=== PATIENT | female | born 1960 | race Caucasian/White ===

== ENCOUNTER → 2023-06-20 | Outpatient (CLI) | payer MEDICARE, BC ==
[~2023-06-20] MED LIST: ASPI81TA26 PO; B-12100010 PO; CRAN400C PO; GASTROGRAFIN SOLUTION 30ML ONE; ISOVUE-370 76% 100ML VIAL ONE; JARD1TAB; LISI10TA22; METF10004; PRESCAP PO; ROPI5TAB19; SIMV20TA22
== END ==
LOC: M PLAIMG 11:19
PROVIDERS: ATTEND Internal Medicine Hematology & Oncology
DX: D46.9 Myelodysplastic syndrome, unspecified (principal); C49.9 Malignant neoplasm of connective and soft tissue, unspecified; Z90.5 Acquired absence of kidney; Z90.49 Acquired absence of other specified parts of digestive tract; N28.1 Cyst of kidney, acquired; K42.9 Umbilical hernia without obstruction or gangrene; R91.8 Other nonspecific abnormal finding of lung field; I25.10 Atherosclerotic heart disease of native coronary artery without angina pectoris; K44.9 Diaphragmatic hernia without obstruction or gangrene
CPT/HCPCS: 71260; 74177; Q9963; Q9967

== ENCOUNTER → 2023-09-19 | Outpatient (CLI) | payer MEDICARE, BC ==
[~2023-09-19] MED LIST changes: -GASTROGRAFIN SOLUTION 30ML ONE; -ISOVUE-370 76% 100ML VIAL ONE; -JARD1TAB; +JARD1TAB PO; -LISI10TA22; +LISI10TA22 PO; -ROPI5TAB19; +ROPI5TAB19 PO; -SIMV20TA22; +SIMV20TA22 PO
== END ==
LOC: M RAD 10:05
PROVIDERS: ATTEND Internal Medicine Medical Oncology
DX: C46 Kaposi's sarcoma (principal)

== ENCOUNTER → 2023-10-22 | Outpatient (CLI) | payer MEDICARE, BC | LOC: M PLARAD 11:02 | PROVIDERS: ATTEND Internal Medicine Medical Oncology | DX: C64.2 Malignant neoplasm of left kidney, except renal pelvis (principal) | CPT/HCPCS: 78815; A9552 ==

== ENCOUNTER → 2023-11-19 | Outpatient (CLI) | payer MEDICARE, BC ==
[~2023-11-19] MED LIST changes: -CRAN400C PO; +CRANBERRY400 MG PO; +HOME MED LIST COMPLETE! XX SCH; +LIDOCAINE 1% MDV 20ML VIAL As Ordered ONE
[2023-11-19 08:08] VITALS: TEMP 98.4
[2023-11-19 11:15] VITALS: BP 120/64; O2SAT 97
== END ==
LOC: M IRPRO 07:58
PROVIDERS: ATTEND Internal Medicine Pulmonary Disease
DX: R91.1 Solitary pulmonary nodule (principal); J95.811 Postprocedural pneumothorax; C78.01 Secondary malignant neoplasm of right lung

== ENCOUNTER → 2023-11-20 | Outpatient (CLI) | payer MEDICARE, BC ==
[~2023-11-20] MED LIST changes: -HOME MED LIST COMPLETE! XX SCH; -LIDOCAINE 1% MDV 20ML VIAL As Ordered ONE
== END ==
LOC: M RAD 11:08
PROVIDERS: ATTEND Internal Medicine Pulmonary Disease
DX: J95.811 Postprocedural pneumothorax (principal)

== ENCOUNTER → 2023-12-10 | Outpatient (CLI) | payer MEDICARE, BC | LOC: M CARPUL 13:01 | PROVIDERS: ATTEND Internal Medicine Medical Oncology | DX: C64.2 Malignant neoplasm of left kidney, except renal pelvis (principal); Z79.69 Long term (current) use of other immunomodulators and immunosuppressants; I36.1 Nonrheumatic tricuspid (valve) insufficiency ==

== ENCOUNTER 2023-12-18 18:19 | Emergency (ER) | payer MEDICARE, BC ==
[~2023-12-18] VITALS: Ht 160 cm; Wt 118.8 kg
[2023-12-18 22:24] VITALS: BP 136/88; TEMP 98.9; O2SAT 98
== END 2023-12-18 22:49 | disposition home or self-care (01) ==
LOC: M ED 18:19
DX: D17.24 Benign lipomatous neoplasm of skin and subcutaneous tissue of left leg (principal); E11.9 Type 2 diabetes mellitus without complications; I10 Essential (primary) hypertension; R91.1 Solitary pulmonary nodule; Z85.831 Personal history of malignant neoplasm of soft tissue; Z79.82 Long term (current) use of aspirin; Z79.899 Other long term (current) drug therapy; Z88.1 Allergy status to other antibiotic agents

== ENCOUNTER → 2024-01-09 | Outpatient (CLI) | payer MEDICARE, BC ==
[~2024-01-09] MED LIST changes: +LIDO30CR18 TOP; +ONDA-84 PO; +PROC10TA5 PO
== END ==
LOC: M RAD 09:16
PROVIDERS: ATTEND Internal Medicine Medical Oncology
DX: C64.2 Malignant neoplasm of left kidney, except renal pelvis (principal); Z79.69 Long term (current) use of other immunomodulators and immunosuppressants; M17.12 Unilateral primary osteoarthritis, left knee; Z90.5 Acquired absence of kidney; Z96.651 Presence of right artificial knee joint
CPT/HCPCS: 78306; A9503

== ENCOUNTER → 2024-01-11 | Outpatient (CLI) | payer MEDICARE, BC ==
[~2024-01-11] MED LIST changes: +LIDOCAINE 1% MDV 20ML VIAL As Ordered ONE; +MIDAZOLAM INJ 2MG/2ML VIAL As Ordered ONE; +ceFAZolin 2 GM/D5W 50 ML IV BAG As Ordered ONE; +fentaNYL 100 MCG/2 ML INJECTION As Ordered ONE
[2024-01-11 13:40] VITALS: TEMP 98.3
[2024-01-11] MEDS: ceFAZolin SOD 2 GM in IV 1 EA IV ONE (14:22)
[2024-01-11 15:05] VITALS: BP 151/89; O2SAT 100
== END ==
LOC: M IRPRO 13:36
PROVIDERS: ATTEND Internal Medicine Medical Oncology
DX: C49.9 Malignant neoplasm of connective and soft tissue, unspecified (principal)
CPT/HCPCS: 36561; 99152; 99153; C1769; J0690; J2250; J3010

== ENCOUNTER → 2024-02-22 | Outpatient (CLI) | payer MEDICARE, BC ==
[~2024-02-22] MED LIST changes: +CRAN450T4 PO; +DEXA4TA PO; +GASTROGRAFIN SOLUTION 30ML As Ordered ONE; +ISOVUE-370 76% 100ML VIAL As Ordered ONE; -LIDOCAINE 1% MDV 20ML VIAL As Ordered ONE; -MIDAZOLAM INJ 2MG/2ML VIAL As Ordered ONE; -ceFAZolin 2 GM/D5W 50 ML IV BAG As Ordered ONE; -fentaNYL 100 MCG/2 ML INJECTION As Ordered ONE
== END ==
LOC: M RAD 15:31
PROVIDERS: ATTEND Dietitian, Registered
DX: C64.2 Malignant neoplasm of left kidney, except renal pelvis (principal); R91.8 Other nonspecific abnormal finding of lung field; K44.9 Diaphragmatic hernia without obstruction or gangrene; K42.9 Umbilical hernia without obstruction or gangrene; Z90.5 Acquired absence of kidney
CPT/HCPCS: 71260; 74177; Q9963; Q9967

== ENCOUNTER 2024-04-26 14:09 | Emergency (ER) | payer MEDICARE, BC ==
[~2024-04-26] VITALS: Ht 157.5 cm; Wt 117.6 kg
[~2024-04-26 14:09] MED LIST changes: -GASTROGRAFIN SOLUTION 30ML As Ordered ONE; +HYDR-643 PO; -ISOVUE-370 76% 100ML VIAL As Ordered ONE
[2024-04-26 14:12] VITALS: TEMP 99.6
[2024-04-26] MEDS: methylPREDNISolone 125MG 2ML VIAL IV ONE (15:00)
[2024-04-26] MEDS: FAMOTIDINE 20MG/2ML VIAL IVP ONE (15:00)
[2024-04-26] MEDS: diphenhydrAMINE 50MG/ML VIAL IV ONE (15:00)
[2024-04-26] MEDS ORDERED: SODIUM CHLORIDE 0.9% INJ 10 ML SYR IV PRN (15:30)
[2024-04-26 15:58] LABS: EOS % 1.1 % (0.0-3.0); HEMOGLOBIN 10.5 g/dl (12.0-15.5); LYMPH # 0.5 10^3/uL (1.5-5.0); LYMPH % 14.5 % (24.0-44.0); MEAN CORPUSCULAR HEMOGLOBIN 29.4 pg (27.0-33.0); MEAN CORPUSCULAR HGB CONC 32.8 g/dl (32.0-36.5); MEAN CORPUSCULAR VOLUME 89.6 fl (80.0-96.0); MONO # 0.4 10^3/uL (0.0-0.8); MONO % 12.5 % (2.0-8.0); NEUTROPHILS # 2.4 10^3/uL (1.5-8.5); NEUTROPHILS % 69.1 % (36.0-66.0); PLATELET COUNT, AUTOMATED 164 10^3/uL (150-450); RED BLOOD COUNT 3.57 10^6/uL (4.00-5.40); WHITE BLOOD COUNT 3.5 10^3/uL (4.0-10.0)
[2024-04-26 16:15] LABS: ALBUMIN 1.9 G/DL (3.2-5.2); ALKALINE PHOSPHATASE 90 U/L (35-104); ALT/SGPT 37 U/L (7.0-40); AST/SGOT 24 U/L (<34); BILIRUBIN,DIRECT 0.2 MG/DL (<0.4); BILIRUBIN,TOTAL 0.5 MG/DL (0.3-1.2); BLOOD UREA NITROGEN 8 MG/DL (9-23); CALCIUM LEVEL 6.2 MG/DL (8.3-10.6); CARBON DIOXIDE LEVEL 19 MMOL/L (20-31); CHLORIDE LEVEL 114 MMOL/L (98-107); CREATININE FOR GFR 0.75 MG/DL (0.55-1.30); GLOMERULAR FILTRATION RATE > 60.0 (>45); GLUCOSE, FASTING 133 MG/DL (74-106); POTASSIUM SERUM 3.2 MMOL/L (3.5-5.1); SODIUM LEVEL 141 MMOL/L (136-145); TOTAL PROTEIN 4.8 G/DL (5.7-8.2)
[2024-04-26] MEDS ORDERED: ISOVUE-370 76% 100ML VIAL As Ordered ONE (16:42)
[2024-04-26] MEDS: POTASSIUM CHLORIDE 10MEQ SR TABLET PO ONE (17:00)
[2024-04-26 17:15] VITALS: BP 127/60
[2024-04-26 17:24] VITALS: O2SAT 91
[2024-04-26] MEDS ORDERED: PRED20TA PO (17:56)
[2024-04-29] MEDS ORDERED: DEXA4TA PO (10:25)
== END 2024-04-26 18:21 | disposition home or self-care (01) ==
LOC: M ED 14:09
DX: L29.9 Pruritus, unspecified (principal); L50.9 Urticaria, unspecified; E11.9 Type 2 diabetes mellitus without complications; I10 Essential (primary) hypertension; C64.2 Malignant neoplasm of left kidney, except renal pelvis; C78.00 Secondary malignant neoplasm of unspecified lung; R91.8 Other nonspecific abnormal finding of lung field; Z79.82 Long term (current) use of aspirin; Z79.899 Other long term (current) drug therapy; Z88.1 Allergy status to other antibiotic agents
CPT/HCPCS: 71275; 80048; 80076; 85025; 93041; 93970; 94760; 96374; 96375; 99284; J1200; J1642; J2919; Q9967

== ENCOUNTER → 2024-05-13 | Outpatient (CLI) | payer MEDICARE, BC ==
[~2024-05-13] MED LIST changes: +PRED20TA PO
== END ==
LOC: M PLARAD 10:53
PROVIDERS: ATTEND Internal Medicine Hematology & Oncology
DX: C64.2 Malignant neoplasm of left kidney, except renal pelvis (principal)
CPT/HCPCS: 78815; A9552

== ENCOUNTER 2024-05-14 01:32 | Emergency (ER) | payer MEDICARE, BC ==
[~2024-05-14] VITALS: Ht 157.5 cm; Wt 116.8 kg
[2024-05-14 01:50] VITALS: TEMP 99.2
[2024-05-14 02:30] LABS: BASO % 0.3 % (0.0-1.0); EOS % 0.3 % (0.0-3.0); HEMATOCRIT 32.8 % (36.0-47.0); HEMOGLOBIN 10.5 g/dl (12.0-15.5); MEAN CORPUSCULAR VOLUME 93.7 fl (80.0-96.0); MONO # 0.3 10^3/uL (0.0-0.8); MONO % 4.2 % (2.0-8.0); NEUTROPHILS # 5.6 10^3/uL (1.5-8.5); NEUTROPHILS % 81.1 % (36.0-66.0); PLATELET COUNT, AUTOMATED 166 10^3/uL (150-450); WHITE BLOOD COUNT 6.9 10^3/uL (4.0-10.0)
[2024-05-14 02:49] LABS: BLOOD UREA NITROGEN 21 MG/DL (9-23); CALCIUM LEVEL 8.6 MG/DL (8.3-10.6); CARBON DIOXIDE LEVEL 26 MMOL/L (20-31); CHLORIDE LEVEL 106 MMOL/L (98-107); CK-MB VALUE MASS < 1.0 NG/ML (<3.6); CREATININE FOR GFR 0.88 MG/DL (0.55-1.30); GLOMERULAR FILTRATION RATE > 60.0 (>45); GLUCOSE, FASTING 205 MG/DL (74-106); POTASSIUM SERUM 4.6 MMOL/L (3.5-5.1); SODIUM LEVEL 138 MMOL/L (136-145)
[2024-05-14 02:53] LABS: CPK CREATINE PHOSPHOKINASE 50 U/L (34-145)
[2024-05-14] MEDS ORDERED: ISOVUE-370 76% 100ML VIAL As Ordered ONE (03:32)
[2024-05-14] MEDS: MAALOX 30 ML SUSP *UDC PO ONE (03:53)
[2024-05-14] MEDS: ASPIRIN 81MG CHEW TABLET PO ONE (03:53)
[2024-05-14 04:03] LABS: CK-MB VALUE MASS < 1.0 NG/ML (<3.6)
[2024-05-14 04:09] LABS: CPK CREATINE PHOSPHOKINASE 43 U/L (34-145); MB/CK RELATIVE INDEX 2.32 (< OR =4)
[2024-05-14 05:15] VITALS: BP 108/61; O2SAT 97
== END 2024-05-14 05:25 | disposition home or self-care (01) ==
LOC: M ED 01:32
DX: K21.9 Gastro-esophageal reflux disease without esophagitis (principal); R91.8 Other nonspecific abnormal finding of lung field; E11.9 Type 2 diabetes mellitus without complications; I10 Essential (primary) hypertension; E78.5 Hyperlipidemia, unspecified; Z85.831 Personal history of malignant neoplasm of soft tissue; Z79.82 Long term (current) use of aspirin; Z79.899 Other long term (current) drug therapy; Z88.1 Allergy status to other antibiotic agents
CPT/HCPCS: 71045; 71275; 80048; 82550; 82553; 84484; 85025; 93005; 93041; 94760; 99285; Q9967

== ENCOUNTER → 2024-05-23 | Outpatient (CLI) | payer MEDICARE, BC ==
[~2024-05-23] MED LIST changes: +PRED5TA PO
== END ==
LOC: M ONCR 13:01
PROVIDERS: ATTEND General Practice
DX: C78.01 Secondary malignant neoplasm of right lung (principal); C64.2 Malignant neoplasm of left kidney, except renal pelvis; Z92.21 Personal history of antineoplastic chemotherapy; Z90.49 Acquired absence of other specified parts of digestive tract; Z90.5 Acquired absence of kidney; Z90.710 Acquired absence of both cervix and uterus; Z90.722 Acquired absence of ovaries, bilateral; Z90.79 Acquired absence of other genital organ(s); Z88.1 Allergy status to other antibiotic agents; Z79.52 Long term (current) use of systemic steroids; Z79.82 Long term (current) use of aspirin; Z79.899 Other long term (current) drug therapy

== ENCOUNTER 2024-06-16 11:18 | Outpatient (RCR) | payer MEDICARE, BC ==
[~2024-06-16 11:18] MED LIST changes: -GABA-1171 PO
[2024-06-16] MEDS ORDERED: GABA-1171 PO (13:40)
[2024-06-16] MEDS ORDERED: DEXA4TA PO (15:36)
== END 2024-06-17 ==
LOC: M ONCR 11:18
PROVIDERS: ATTEND General Practice
DX: Z51.0 Encounter for antineoplastic radiation therapy (principal); C78.01 Secondary malignant neoplasm of right lung

== ENCOUNTER → 2024-06-16 | Outpatient (CLI) | payer MEDICARE, BC ==
[~2024-06-16] MED LIST changes: +GABA-1171 PO
== END ==
LOC: M RAD 13:01
PROVIDERS: ATTEND Radiology Radiation Oncology
DX: C78.01 Secondary malignant neoplasm of right lung (principal)

== ENCOUNTER 2024-07-16 13:37 | Outpatient (RCR) | payer MEDICARE, BC ==
[~2024-07-16 13:37] MED LIST changes: +FURO20TA2; +FURO40TA2 PO; +GABA-1171 PO
== END 2024-07-18 ==
LOC: M ONCR 13:37
PROVIDERS: ATTEND General Practice
DX: Z51.0 Encounter for antineoplastic radiation therapy (principal); C78.01 Secondary malignant neoplasm of right lung

== ENCOUNTER 2024-08-05 11:11 | Observation (INO) | payer MEDICARE, BC ==
[~2024-08-05] VITALS: Ht 160 cm; Wt 120.0 kg
[~2024-08-05 11:11] MED LIST changes: +VENL37.598 PO
[2024-08-05] MEDS: EMLA CREAM 5GM TUBE (LIDOCAINE/PRILOCAINE) TOP ONE (12:15)
[2024-08-05] MEDS ORDERED: EMLA CREAM 5GM TUBE (LIDOCAINE/PRILOCAINE) As Ordered ONE (12:15)
[2024-08-05] MEDS: ONDANSETRON 4MG 2ML VIAL IV ONE (12:40)
[2024-08-05 13:35] LABS: BASO % 0.6 % (0.0-1.0); EOS % 2.3 % (0.0-3.0); HEMATOCRIT 26.1 % (36.0-47.0); HEMOGLOBIN 8.2 g/dl (12.0-15.5); LYMPH # 0.2 10^3/uL (1.5-5.0); LYMPH % 13.9 % (24.0-44.0); MEAN CORPUSCULAR HEMOGLOBIN 30.4 pg (27.0-33.0); MEAN CORPUSCULAR HGB CONC 31.4 g/dl (32.0-36.5); MEAN CORPUSCULAR VOLUME 96.7 fl (80.0-96.0); MONO # 0.2 10^3/uL (0.0-0.8); MONO % 12.1 % (2.0-8.0); NEUTROPHILS # 1.2 10^3/uL (1.5-8.5); NEUTROPHILS % 69.9 % (36.0-66.0); WHITE BLOOD COUNT 1.7 10^3/uL (4.0-10.0)
[2024-08-05 13:51] LABS: PLATELET COUNT, AUTOMATED 49 10^3/uL (150-450)
[2024-08-05 14:02] LABS: LIPASE 23 U/L (12-53)
[2024-08-05 14:04] LABS: ALBUMIN 2.2 G/DL (3.2-5.2); ALKALINE PHOSPHATASE 84 U/L (35-104); ALT/SGPT 20 U/L (7.0-40); AST/SGOT 50 U/L (<34); BILIRUBIN,DIRECT 0.2 MG/DL (<0.4); BILIRUBIN,TOTAL 0.4 MG/DL (0.3-1.2); BLOOD UREA NITROGEN 11 MG/DL (9-23); CALCIUM LEVEL 8.4 MG/DL (8.3-10.6); CARBON DIOXIDE LEVEL 23 MMOL/L (20-31); CHLORIDE LEVEL 108 MMOL/L (98-107); CREATININE FOR GFR 0.74 MG/DL (0.55-1.30); GLOMERULAR FILTRATION RATE > 60.0 (>45); GLUCOSE, FASTING 128 MG/DL (74-106); POTASSIUM SERUM 3.7 MMOL/L (3.5-5.1); SODIUM LEVEL 140 MMOL/L (136-145); TOTAL PROTEIN 5.4 G/DL (5.7-8.2)
[2024-08-05] MEDS ORDERED: ISOVUE-370 76% 100ML VIAL As Ordered ONE (14:46)
[2024-08-05] MEDS: SODIUM CHLORIDE 0.9% INJ 10 ML SYR IV PRN (15:39)
[2024-08-05] MEDS: NS (Normal Saline) 0.9% 1,000 ML IV ONE (16:25)
[2024-08-05] MEDS ORDERED: GABA-284 PO (16:45)
[2024-08-05] MEDS ORDERED: HOME MED LIST COMPLETE! XX SCH (16:50)
[2024-08-05] MEDS ORDERED: ACETAMINOPHEN 325 MG TAB PO PRN (17:50)
[2024-08-05 17:51] LABS: PROCALCITONIN 1.99 ng/ml
[2024-08-05] MEDS: LR 1,000 ML IV SCH (18:00)
[2024-08-05] MEDS: ACETAMINOPHEN 325 MG TAB PO ONE (19:00)
[2024-08-05] MEDS ORDERED: GLUCAGON INJ 1MG VIAL SC PRN (19:35)
[2024-08-05] MEDS ORDERED: DEXTROSE 50% 50ML SYRINGE IV PRN (19:35)
[2024-08-05] MEDS ORDERED: GLUCOSE 4 GM CHEW PO PRN (19:35)
[2024-08-05] MEDS: INSULIN LISPRO (NovoLOG) PER UNIT SC SCH (21:00)
[2024-08-05] MEDS: SIMVASTATIN 20 MG TAB PO SCH (21:00)
[2024-08-05] MEDS: rOPINIRole 0.25 MG TAB(REQUIP) PO SCH (21:00)
[2024-08-05 21:18] LABS: ERYTHROCYTE SEDIMENTATION RATE 90 mm/hr (0-30)
[2024-08-06 06:26] LABS: BASO % 0.6 % (0.0-1.0); EOS # 0.1 10^3/uL (0.0-0.5); EOS % 3.1 % (0.0-3.0); HEMATOCRIT 25.9 % (36.0-47.0); HEMOGLOBIN 8.1 g/dl (12.0-15.5); LYMPH # 0.3 10^3/uL (1.5-5.0); LYMPH % 21.4 % (24.0-44.0); MEAN CORPUSCULAR HEMOGLOBIN 30.6 pg (27.0-33.0); MEAN CORPUSCULAR HGB CONC 31.3 g/dl (32.0-36.5); MEAN CORPUSCULAR VOLUME 97.7 fl (80.0-96.0); MONO # 0.3 10^3/uL (0.0-0.8); MONO % 18.9 % (2.0-8.0); NEUTROPHILS % 55.4 % (36.0-66.0); RED BLOOD COUNT 2.65 10^6/uL (4.00-5.40); WHITE BLOOD COUNT 1.6 10^3/uL (4.0-10.0)
[2024-08-06 06:35] LABS: NEUTROPHILS # 0.9 10^3/uL (1.5-8.5); PLATELET COUNT, AUTOMATED 42 10^3/uL (150-450)
[2024-08-06 07:00] LABS: ALBUMIN 2.1 G/DL (3.2-5.2); ALKALINE PHOSPHATASE 81 U/L (35-104); ALT/SGPT 32 U/L (7.0-40); AST/SGOT 80 U/L (<34); BILIRUBIN,TOTAL 0.3 MG/DL (0.3-1.2); BLOOD UREA NITROGEN 7 MG/DL (9-23); CALCIUM LEVEL 8.3 MG/DL (8.3-10.6); CARBON DIOXIDE LEVEL 22 MMOL/L (20-31); CHLORIDE LEVEL 109 MMOL/L (98-107); CREATININE FOR GFR 0.74 MG/DL (0.55-1.30); GLOMERULAR FILTRATION RATE > 60.0 (>45); GLUCOSE, FASTING 110 MG/DL (74-106); MAGNESIUM LEVEL 1.8 MG/DL (1.8-2.4); POTASSIUM SERUM 3.7 MMOL/L (3.5-5.1); SODIUM LEVEL 142 MMOL/L (136-145); TOTAL PROTEIN 5.1 G/DL (5.7-8.2)
[2024-08-06] MEDS: INSULIN LISPRO (NovoLOG) PER UNIT SC SCH (07:24)
[2024-08-06] MEDS: ONDANSETRON 4MG 2ML VIAL IV PRN (07:56)
[2024-08-06] MEDS: ASPIRIN 81MG ENTERIC TABLET PO SCH (09:13)
[2024-08-06] MEDS: GABAPENTIN 400MG CAP PO SCH (09:13)
[2024-08-06] MEDS: VENLAFAXINE **XR** 37.5 MG CAPSULE PO SCH (09:13)
[2024-08-06 14:03] VITALS: BP 122/56; TEMP 97; O2SAT 98
[2024-08-06] MEDS ORDERED: SODIUM CHLORIDE 0.9% INJ 10 ML SYR IV PRN (14:10)
== END 2024-08-06 14:39 | disposition home or self-care (01) ==
LOC: M ED 11:11 → M ED INP 11:12
PROVIDERS: ADMIT Student in an Organized Health Care Education/Training Program; ATTEND Student in an Organized Health Care Education/Training Program
DX: K52.1 Toxic gastroenteritis and colitis (principal); D61.818 Other pancytopenia; C64.2 Malignant neoplasm of left kidney, except renal pelvis; G90.09 Other idiopathic peripheral autonomic neuropathy; I10 Essential (primary) hypertension; E78.5 Hyperlipidemia, unspecified; F41.9 Anxiety disorder, unspecified; G25.81 Restless legs syndrome; E11.9 Type 2 diabetes mellitus without complications; Z92.3 Personal history of irradiation; Z79.82 Long term (current) use of aspirin; Z79.899 Other long term (current) drug therapy
CPT/HCPCS: 36415; 71045; 74176; 76705; 80048; 80053; 80076; 83605; 83690; 83735; 84145; 85025; 85049; 85055; 85652; 86140; 87040; 87077; 87154; 87486; 87581; 87633; 87798; 93005; 96361; 96374; 96375; 96376; 99285; G0378; J1642; J2405

== ENCOUNTER → 2024-08-13 | Outpatient (CLI) | payer MEDICARE, BC ==
[~2024-08-13] VITALS: Ht 157.5 cm; Wt 121.0 kg
[~2024-08-13] MED LIST changes: +GABA-284 PO
[2024-08-13 13:56] VITALS: BP 126/76; O2SAT 95
== END ==
LOC: M PAL 13:24
PROVIDERS: ATTEND Family Medicine
DX: Z51.5 Encounter for palliative care (principal); C64.2 Malignant neoplasm of left kidney, except renal pelvis; C78.00 Secondary malignant neoplasm of unspecified lung; Z90.5 Acquired absence of kidney; Z92.3 Personal history of irradiation; Z79.899 Other long term (current) drug therapy; Z79.632 Long term (current) use of antitumor antibiotic; Z79.82 Long term (current) use of aspirin; Z79.891 Long term (current) use of opiate analgesic; Z88.1 Allergy status to other antibiotic agents

== ENCOUNTER → 2024-08-21 | Outpatient (CLI) | payer MEDICARE, BC ==
[~2024-08-21] MED LIST changes: +PROHANCE 279.3MG/ML 15ML VIAL ONE; +PROHANCE 279.3MG/ML 5ML VIAL ONE
== END ==
LOC: M PLAIMG 12:13
PROVIDERS: ATTEND Internal Medicine Medical Oncology
DX: C64.9 Malignant neoplasm of unspecified kidney, except renal pelvis (principal)
CPT/HCPCS: 70553; A9576

== ENCOUNTER 2024-09-02 08:54 | Emergency (ER) | payer MEDICARE, BC ==
[~2024-09-02] VITALS: Ht 157.5 cm; Wt 113.4 kg
[~2024-09-02 08:54] MED LIST changes: -PROHANCE 279.3MG/ML 15ML VIAL ONE; -PROHANCE 279.3MG/ML 5ML VIAL ONE
[2024-09-02 08:58] VITALS: TEMP 96.6
[2024-09-02 10:22] LABS: BASO % 0.6 % (0.0-1.0); EOS % 0.6 % (0.0-3.0); HEMATOCRIT 30.1 % (36.0-47.0); HEMOGLOBIN 9.5 g/dl (12.0-15.5); LYMPH # 0.3 10^3/uL (1.5-5.0); LYMPH % 18.5 % (24.0-44.0); MEAN CORPUSCULAR HEMOGLOBIN 30.4 pg (27.0-33.0); MEAN CORPUSCULAR HGB CONC 31.6 g/dl (32.0-36.5); MEAN CORPUSCULAR VOLUME 96.2 fl (80.0-96.0); MONO # 0.2 10^3/uL (0.0-0.8); MONO % 11.5 % (2.0-8.0); NEUTROPHILS # 1.1 10^3/uL (1.5-8.5); NEUTROPHILS % 67.5 % (36.0-66.0); RED BLOOD COUNT 3.13 10^6/uL (4.00-5.40); WHITE BLOOD COUNT 1.6 10^3/uL (4.0-10.0)
[2024-09-02 10:38] LABS: LIPASE 20 U/L (12-53)
[2024-09-02 10:41] LABS: ALBUMIN 2.4 G/DL (3.2-5.2); ALKALINE PHOSPHATASE 110 U/L (35-104); ALT/SGPT 12 U/L (7.0-40); AST/SGOT 19 U/L (<34); BILIRUBIN,TOTAL 0.3 MG/DL (0.3-1.2); BLOOD UREA NITROGEN 7 MG/DL (9-23); CALCIUM LEVEL 8.4 MG/DL (8.3-10.6); CARBON DIOXIDE LEVEL 26 MMOL/L (20-31); CHLORIDE LEVEL 103 MMOL/L (98-107); CREATININE FOR GFR 0.72 MG/DL (0.55-1.30); GLOMERULAR FILTRATION RATE > 60.0 (>45); GLUCOSE, FASTING 151 MG/DL (74-106); POTASSIUM SERUM 4.2 MMOL/L (3.5-5.1); SODIUM LEVEL 138 MMOL/L (136-145); TOTAL PROTEIN 5.9 G/DL (5.7-8.2)
[2024-09-02 10:42] LABS: PLATELET COUNT, AUTOMATED 44 10^3/uL (150-450)
[2024-09-02] MEDS: NS (Normal Saline) 0.9% 1,000 ML IV ONE (11:08)
[2024-09-02] MEDS ORDERED: LIDO30CR18 TOP (13:03)
[2024-09-02] MEDS ORDERED: PROC10TA5 PO (13:03)
[2024-09-02] MEDS ORDERED: VENL37.598 PO (13:03)
[2024-09-02] MEDS ORDERED: HOME MED LIST COMPLETE! XX SCH (13:05)
[2024-09-02 13:30] VITALS: BP 121/69; O2SAT 99
== END 2024-09-02 14:12 | disposition home or self-care (01) ==
LOC: M ED 09:27
DX: R11.10 Vomiting, unspecified (principal); R19.7 Diarrhea, unspecified; N28.1 Cyst of kidney, acquired; R91.8 Other nonspecific abnormal finding of lung field; E11.9 Type 2 diabetes mellitus without complications; I10 Essential (primary) hypertension; Z85.118 Personal history of other malignant neoplasm of bronchus and lung; Z85.528 Personal history of other malignant neoplasm of kidney; Z85.42 Personal history of malignant neoplasm of other parts of uterus; Z90.5 Acquired absence of kidney; Z79.82 Long term (current) use of aspirin; Z79.899 Other long term (current) drug therapy; Z88.1 Allergy status to other antibiotic agents

== ENCOUNTER → 2024-09-17 | Outpatient (CLI) | payer MEDICARE, BC ==
[~2024-09-17] VITALS: Ht 157.5 cm; Wt 117.7 kg
[~2024-09-17] MED LIST changes: +VENL75CA47 PO
[2024-09-17 11:09] VITALS: BP 127/72; O2SAT 95
== END ==
LOC: M PAL 10:58
PROVIDERS: ATTEND Physician Assistant
DX: Z51.5 Encounter for palliative care (principal); C64.2 Malignant neoplasm of left kidney, except renal pelvis; Z90.5 Acquired absence of kidney; C78.00 Secondary malignant neoplasm of unspecified lung; Z92.21 Personal history of antineoplastic chemotherapy; Z92.3 Personal history of irradiation; Z79.891 Long term (current) use of opiate analgesic; G57.93 Unspecified mononeuropathy of bilateral lower limbs; Z79.899 Other long term (current) drug therapy; Z88.1 Allergy status to other antibiotic agents; Z79.82 Long term (current) use of aspirin

== ENCOUNTER → 2024-10-06 | Outpatient (CLI) | payer MEDICARE, BC ==
[~2024-10-06] MED LIST changes: +CLOT1CRE56 TOP; +OXYC-517 PO
== END ==
LOC: M RAD 11:11
PROVIDERS: ATTEND General Practice
DX: C78.01 Secondary malignant neoplasm of right lung (principal)

== ENCOUNTER → 2024-10-07 | Outpatient (CLI) | payer MEDICARE, BC | LOC: M ONCR 13:56 | PROVIDERS: ATTEND General Practice | DX: C64.2 Malignant neoplasm of left kidney, except renal pelvis (principal); C78.01 Secondary malignant neoplasm of right lung; D48.19 Other specified neoplasm of uncertain behavior of connective and other soft tissue; Z92.21 Personal history of antineoplastic chemotherapy; Z92.3 Personal history of irradiation; Z90.5 Acquired absence of kidney; Z90.49 Acquired absence of other specified parts of digestive tract; Z88.1 Allergy status to other antibiotic agents; Z79.82 Long term (current) use of aspirin; Z79.899 Other long term (current) drug therapy ==

== ENCOUNTER → 2024-10-15 | Outpatient (CLI) | payer MEDICARE, BC ==
[~2024-10-15] MED LIST changes: +LIDOCAINE 1% MDV 20ML VIAL As Ordered ONE
[2024-10-15 12:25] VITALS: TEMP 96.7
[2024-10-15 13:05] VITALS: BP 139/64; O2SAT 98
== END ==
LOC: M IRPRO 12:15
PROVIDERS: ATTEND Internal Medicine Medical Oncology
DX: C64.2 Malignant neoplasm of left kidney, except renal pelvis (principal); D21.9 Benign neoplasm of connective and other soft tissue, unspecified

== ENCOUNTER → 2024-10-16 | Outpatient (CLI) | payer MEDICARE, BC ==
[~2024-10-16] VITALS: Ht 157.5 cm; Wt 115.9 kg
[~2024-10-16] MED LIST changes: -LIDOCAINE 1% MDV 20ML VIAL As Ordered ONE
[2024-10-16 11:24] VITALS: BP 117/70; O2SAT 95
== END ==
LOC: M PAL 11:11
PROVIDERS: ATTEND Physician Assistant
DX: Z51.5 Encounter for palliative care (principal); C64.2 Malignant neoplasm of left kidney, except renal pelvis; Z90.5 Acquired absence of kidney; Z92.3 Personal history of irradiation; C78.00 Secondary malignant neoplasm of unspecified lung; Z92.21 Personal history of antineoplastic chemotherapy; Z88.8 Allergy status to other drugs, medicaments and biological substances; Z79.899 Other long term (current) drug therapy; Z79.891 Long term (current) use of opiate analgesic

== ENCOUNTER → 2024-12-22 | Outpatient (CLI) | payer MEDICARE, BC ==
[~2024-12-22] MED LIST changes: +COLA100C5 PO
== END ==
LOC: M PAL 16:11
PROVIDERS: ATTEND Physician Assistant
DX: Z51.5 Encounter for palliative care (principal); C79.02 Secondary malignant neoplasm of left kidney and renal pelvis; Z90.5 Acquired absence of kidney; Z92.3 Personal history of irradiation; C79.89 Secondary malignant neoplasm of other specified sites; Z92.21 Personal history of antineoplastic chemotherapy; Z79.891 Long term (current) use of opiate analgesic; Z88.6 Allergy status to analgesic agent; Z79.82 Long term (current) use of aspirin; Z79.899 Other long term (current) drug therapy; Z79.02 Long term (current) use of antithrombotics/antiplatelets

== ENCOUNTER → 2025-01-05 | Outpatient (CLI) | payer MEDICARE, BC | LOC: M PLARAD 10:15 | PROVIDERS: ATTEND Internal Medicine Hematology & Oncology | DX: C49.8 Malignant neoplasm of overlapping sites of connective and soft tissue (principal) | CPT/HCPCS: 78815; A9552 ==

== ENCOUNTER → 2025-02-19 | Outpatient (CLI) | payer MEDICARE, BC ==
[~2025-02-19] MED LIST changes: +DULO30CA9 PO; +METF-838
== END ==
LOC: M PAL 10:14
PROVIDERS: ATTEND Physician Assistant
DX: Z51.5 Encounter for palliative care (principal); C64.2 Malignant neoplasm of left kidney, except renal pelvis; Z90.5 Acquired absence of kidney; Z85.828 Personal history of other malignant neoplasm of skin; C78.39 Secondary malignant neoplasm of other respiratory organs; Z79.891 Long term (current) use of opiate analgesic; Z88.6 Allergy status to analgesic agent; Z79.82 Long term (current) use of aspirin; Z79.899 Other long term (current) drug therapy; Z79.02 Long term (current) use of antithrombotics/antiplatelets

== ENCOUNTER → 2025-02-19 | Outpatient (CLI) | payer MEDICARE, BC | LOC: M ONCR 10:30 | PROVIDERS: ATTEND General Practice | DX: C78.01 Secondary malignant neoplasm of right lung (principal); C64.2 Malignant neoplasm of left kidney, except renal pelvis; Z92.21 Personal history of antineoplastic chemotherapy; Z92.3 Personal history of irradiation; Z90.5 Acquired absence of kidney; Z90.49 Acquired absence of other specified parts of digestive tract; Z88.1 Allergy status to other antibiotic agents; Z79.52 Long term (current) use of systemic steroids; Z79.82 Long term (current) use of aspirin; Z79.84 Long term (current) use of oral hypoglycemic drugs; Z79.899 Other long term (current) drug therapy ==

== ENCOUNTER → 2025-04-03 | Outpatient (CLI) | payer MEDICARE, BC | LOC: M RAD 13:03 | PROVIDERS: ATTEND General Practice | DX: C78.01 Secondary malignant neoplasm of right lung (principal); R91.8 Other nonspecific abnormal finding of lung field; Z90.5 Acquired absence of kidney; N28.1 Cyst of kidney, acquired; I70.0 Atherosclerosis of aorta ==

== ENCOUNTER → 2025-04-10 | Outpatient (CLI) | payer MEDICARE, BC | LOC: M ONCR 13:45 | PROVIDERS: ATTEND General Practice | DX: C78.01 Secondary malignant neoplasm of right lung (principal); C78.02 Secondary malignant neoplasm of left lung; C64.2 Malignant neoplasm of left kidney, except renal pelvis; Z92.21 Personal history of antineoplastic chemotherapy; Z92.3 Personal history of irradiation; Z90.5 Acquired absence of kidney; Z90.49 Acquired absence of other specified parts of digestive tract; Z88.1 Allergy status to other antibiotic agents; Z79.52 Long term (current) use of systemic steroids; Z79.82 Long term (current) use of aspirin; Z79.899 Other long term (current) drug therapy ==

== ENCOUNTER → 2025-04-15 | Outpatient (CLI) | payer MEDICARE, BC ==
[~2025-04-15] VITALS: Ht 160 cm; Wt 114.8 kg
[2025-04-15 11:52] VITALS: BP 136/82; O2SAT 96
== END ==
LOC: M PAL 11:37
PROVIDERS: ATTEND Physician Assistant
DX: Z51.5 Encounter for palliative care (principal); C79.02 Secondary malignant neoplasm of left kidney and renal pelvis; Z92.3 Personal history of irradiation; C64.2 Malignant neoplasm of left kidney, except renal pelvis; C78.02 Secondary malignant neoplasm of left lung; Z85.528 Personal history of other malignant neoplasm of kidney; Z92.21 Personal history of antineoplastic chemotherapy; Z79.891 Long term (current) use of opiate analgesic; Z88.6 Allergy status to analgesic agent; Z79.82 Long term (current) use of aspirin; Z79.83 Long term (current) use of bisphosphonates; Z79.02 Long term (current) use of antithrombotics/antiplatelets

== ENCOUNTER → 2025-05-28 | Outpatient (CLI) | payer MEDICARE, BC ==
[~2025-05-28] MED LIST changes: +PAZO200T2 PO
== END ==
LOC: M PAL 10:33
PROVIDERS: ATTEND Physician Assistant
DX: Z51.5 Encounter for palliative care (principal); C64.2 Malignant neoplasm of left kidney, except renal pelvis; Z90.5 Acquired absence of kidney; Z92.3 Personal history of irradiation; C78.00 Secondary malignant neoplasm of unspecified lung; Z92.21 Personal history of antineoplastic chemotherapy; Z79.891 Long term (current) use of opiate analgesic; Z88.6 Allergy status to analgesic agent; Z79.83 Long term (current) use of bisphosphonates; Z79.82 Long term (current) use of aspirin; Z79.899 Other long term (current) drug therapy